=== PATIENT | male | born 1955 | race Caucasian/White ===

== ENCOUNTER 2018-10-13 10:21 | Emergency (ER) | payer OTHER ==
[~2018-10-13] VITALS: Ht 182.9 cm; Wt 90.9 kg
[2018-10-13 12:28] LABS: BASOPHILS % (AUTO) 0.1 % (0-1); EOSINOPHILS # (AUTO) 0.2 X10'3 (0-0.9); EOSINOPHILS % (AUTO) 1.5 % (0-6); HEMOGLOBIN 15.8 g/dl (14.0-17.9); LYMPHOCYTES # (AUTO) 0.5 X10'3 (1.1-4.8); LYMPHOCYTES % (AUTO) 2.9 % (21-51); MEAN CORPUSCULAR HEMOGLOBIN 32.4 PG (27.0-31.0); MEAN CORPUSCULAR HGB CONC 34.4 g/dL (33.0-36.5); MEAN CORPUSCULAR VOLUME 94.3 FL (78-98); MEAN PLATELET VOLUME 8.9 FL (7.4-10.4); MONOCYTES # (AUTO) 0.2 X10'3 (0-0.9); MONOCYTES % (AUTO) 1.2 % (2-12); NEUTROPHILS # (AUTO) 15.2 X10'3 (1.8-7.7); NEUTROPHILS % (AUTO) 94.3 % (42-75); PLATELET COUNT 165 X10'3 (140-440); RED BLOOD COUNT 4.88 X10'6 (4.70-6.10); RED CELL DISTRIBUTION WIDTH 13.8 % (11.5-14.5); WHITE BLOOD COUNT 16.1 X10'3 (4.5-11.0)
[2018-10-13 12:47] LABS: ALANINE AMINOTRANSFERASE 26 U/L (12-78); ALBUMIN 3.4 G/DL (3.4-5.0); ALBUMIN/GLOBULIN RATIO 0.9 (1.1-1.5); ALKALINE PHOSPHATASE 112 IU/L (46-116); ANION GAP 14 (8-16); ASPARTATE AMINO TRANSFERASE 12 U/L (10-37); BILIRUBIN,TOTAL 0.6 MG/DL (0.1-1.0); BLOOD UREA NITROGEN 14 MG/DL (7-18); BUN/CREATININE RATIO 11.2 (5.4-32.0); CALCIUM 8.3 MG/DL (8.5-10.1); CHLORIDE 103 MMOL/L (99-107); CREATININE 1.25 MG/DL (0.60-1.10); GLUCOSE 147 MG/DL (70-104); POTASSIUM 4.2 MMOL/L (3.5-5.1); SODIUM 138 MMOL/L (135-145); TOTAL CARBON DIOXIDE 20.9 MMOL/L (24-32); TOTAL PROTEIN 7.3 G/DL (6.4-8.2); eGFR 59 ML/MIN
[2018-10-13] MEDS ORDERED: ondansetron/PF 4mg/2ml inj IV ONE (12:55)
[2018-10-13 12:57] LABS: MAGNESIUM 1.6 MG/DL (1.5-2.4); TROPONIN I < 0.04 NG/ML (0.0-0.05)
[2018-10-13] MEDS ORDERED: metoclopramide 5 mg/ml inj IV ONE (13:00)
[2018-10-13] MEDS ORDERED: diphenhydrAMINE 50 mg/ml inj IV ONE (13:00)
[2018-10-13] MEDS ORDERED: LEVO100T PO (14:10)
[2018-10-13] MEDS ORDERED: OMEG-167 PO (14:10)
[2018-10-13] MEDS ORDERED: PANT-47 PO (14:10)
[2018-10-13] MEDS ORDERED: ASPI-611 PO (14:10)
[2018-10-13] MEDS ORDERED: ATOR40TA71 PO (14:10)
[2018-10-13] MEDS ORDERED: SILD50TA PO (14:11)
[2018-10-13] MEDS ORDERED: SODI56GE9 TP (14:11)
[2018-10-13] MEDS ORDERED: CAPS60CR6 TP (15:20)
[2018-10-13] MEDS ORDERED: ONDA4TAB6 PO (15:20)
[2018-10-13] MEDS ORDERED: METO-292 PO (15:20)
[2018-10-13] MEDS ORDERED: DIPH25CA83 PO (15:20)
[2018-10-13] MEDS ORDERED: CLIN150C2 PO (15:22)
[2018-10-13 15:55] VITALS: BP 154/92
== END 2018-10-13 15:57 | disposition home or self-care (01) ==
LOC: ER 10:22
DX: F12.188 Cannabis abuse with other cannabis-induced disorder (principal); I48.91 Unspecified atrial fibrillation; I25.10 Atherosclerotic heart disease of native coronary artery without angina pectoris; I25.2 Old myocardial infarction; Z98.890 Other specified postprocedural states; Z79.82 Long term (current) use of aspirin; Z79.2 Long term (current) use of antibiotics; Z79.899 Other long term (current) drug therapy
CPT/HCPCS: 36415; 71045; 74176; 80053; 83735; 83880; 84484; 85025; 93005; 96374; 96375; 99284; J1200; J2405; J2765

== ENCOUNTER 2019-04-17 08:37 | Emergency (ER) | payer MEDICARE, OTHER ==
[~2019-04-17] VITALS: Ht 182.9 cm; Wt 84.1 kg
[~2019-04-17 08:37] MED LIST: ASPI-611 PO; ATOR40TA71 PO; CAPS60CR6 TP; DIPH25CA83 PO; LEVO100T PO; METO-292 PO; OMEG-167 PO; ONDA4TAB6 PO; PANT-47 PO; SILD50TA PO; SODI56GE9 TP
[2019-04-17 09:29] LABS: BASOPHILS # (AUTO) 0.1 X10'3 (0-0.2); BASOPHILS % (AUTO) 0.9 % (0-1); EOSINOPHILS # (AUTO) 0.6 X10'3 (0-0.9); EOSINOPHILS % (AUTO) 6.6 % (0-6); HEMATOCRIT 49.8 % (42.0-52.0); HEMOGLOBIN 17.6 g/dl (14.0-17.9); LYMPHOCYTES # (AUTO) 2.2 X10'3 (1.1-4.8); LYMPHOCYTES % (AUTO) 26.6 % (21-51); MEAN CORPUSCULAR HGB CONC 35.2 g/dL (33.0-36.5); MEAN CORPUSCULAR VOLUME 93.6 FL (78-98); MEAN PLATELET VOLUME 9.6 FL (7.4-10.4); MONOCYTES # (AUTO) 0.5 X10'3 (0-0.9); MONOCYTES % (AUTO) 6.2 % (2-12); NEUTROPHILS % (AUTO) 59.7 % (42-75); PLATELET COUNT 160 X10'3 (140-440); RED BLOOD COUNT 5.32 X10'6 (4.70-6.10); RED CELL DISTRIBUTION WIDTH 13.8 % (11.5-14.5); WHITE BLOOD COUNT 8.4 X10'3 (4.5-11.0)
[2019-04-17 09:46] LABS: ALANINE AMINOTRANSFERASE 19 U/L (12-78); ALBUMIN 3.7 G/DL (3.4-5.0); ALBUMIN/GLOBULIN RATIO 0.9 (1.1-1.5); ALKALINE PHOSPHATASE 134 IU/L (46-116); ANION GAP 10 (8-16); ASPARTATE AMINO TRANSFERASE 6 U/L (10-37); BILIRUBIN,TOTAL 0.6 MG/DL (0.1-1.0); BLOOD UREA NITROGEN 12 MG/DL (7-18); CALCIUM 9.1 MG/DL (8.5-10.1); CHLORIDE 107 MMOL/L (99-107); GLUCOSE 118 MG/DL (70-104); POTASSIUM 4.3 MMOL/L (3.5-5.1); SODIUM 141 MMOL/L (135-145); TOTAL CARBON DIOXIDE 23.7 MMOL/L (24-32); TOTAL PROTEIN 7.7 G/DL (6.4-8.2); eGFR 76 ML/MIN
[2019-04-17] MEDS ORDERED: propofol 10mg/ml 20ml vial IV ONE (10:00)
--- NOTE | 2019-04-17 11:30 | NUR ---
SEE PAPER CHART FOR PREVIOUS CHARTING.
[2019-04-17 12:53] VITALS: BP 116/85
== END 2019-04-17 16:20 | disposition home or self-care (01) ==
LOC: ER 08:37
DX: I48.91 Unspecified atrial fibrillation (principal); I25.10 Atherosclerotic heart disease of native coronary artery without angina pectoris; E78.00 Pure hypercholesterolemia, unspecified; I10 Essential (primary) hypertension; K21.9 Gastro-esophageal reflux disease without esophagitis; E03.9 Hypothyroidism, unspecified; G89.29 Other chronic pain; F12.90 Cannabis use, unspecified, uncomplicated; Z95.1 Presence of aortocoronary bypass graft; Z98.890 Other specified postprocedural states; Z79.82 Long term (current) use of aspirin; Z79.899 Other long term (current) drug therapy
CPT/HCPCS: 36415; 71045; 80053; 83735; 83880; 84484; 85025; 92960; 93005; 99152; 99153; 99285; J2704